=== PATIENT | female | born 1965 | race African-American/Black ===

== ENCOUNTER → 2017-02-22 | Outpatient (CLI) | payer OTHER | END | disposition home or self-care (01) | LOC: CDC 09:30 | DX: Z01.810 Encounter for preprocedural cardiovascular examination (principal); R94.31 Abnormal electrocardiogram [ECG] [EKG] | CPT/HCPCS: 93000 ==

== ENCOUNTER 2017-03-20 11:07 | Day surgery (SDC) | payer OTHER ==
[~2017-03-20] VITALS: Ht 175.3 cm; Wt 130.2 kg
[~2017-03-20 11:07] MED LIST: DAILY MULTIPLE1 EACH PO; FEOSOL325 MG PO; FLEXERIL10 MG PO; FLONASE16 G1 BOTH NARES; MAGNESIUM CITR100 MG PO; MOTRIN800 MG PO; NORVASC10 MG PO; TYLENOL WITH C1 EACH PO; VITAMIN D31000 UNIT PO
[2017-03-20 12:07] VITALS: BP 170/83
[2017-03-20] MEDS ORDERED: IBUPROFEN800 MG PO (14:22)
[2017-03-20 15:15] VITALS: BP 169/79
[2017-03-20 15:59] VITALS: BP 141/84
== END 2017-03-20 16:11 | disposition home or self-care (01) ==
LOC: SDC 11:07
DX: N84.0 Polyp of corpus uteri (principal); N94.6 Dysmenorrhea, unspecified; I10 Essential (primary) hypertension; E66.9 Obesity, unspecified; Z68.41 Body mass index [BMI] 40.0-44.9, adult
CPT/HCPCS: 88305; J0690; J1100; J2250; J2405; J3010

== ENCOUNTER → 2017-09-17 | Outpatient (CLI) | payer OTHER ==
[~2017-09-17] MED LIST changes: +IBUPROFEN800 MG PO
== END | disposition home or self-care (01) ==
LOC: CDC 14:00
DX: Z01.810 Encounter for preprocedural cardiovascular examination (principal); R94.31 Abnormal electrocardiogram [ECG] [EKG]
CPT/HCPCS: 93000

== ENCOUNTER 2017-10-02 08:28 | Day surgery (SDC) | payer OTHER ==
[~2017-10-02] VITALS: Ht 175.3 cm; Wt 130.6 kg
[~2017-10-02 08:28] MED LIST changes: +CYANOCOBALAM1000 MCG PO; +MAGNESIUM250 MG PO; +PROBIOTIC ACID1 EAC3 PO; +VITAMIN A8000 UNIT PO; +VITAMIN E400 UNIT PO
[2017-10-02 09:28] VITALS: BP 132/79
[2017-10-02 13:28] VITALS: BP 137/76
[2017-10-02 14:07] VITALS: BP 133/72
== END 2017-10-02 14:20 | disposition home or self-care (01) ==
LOC: SDC 08:28
PROC: 0UBC7ZX Excision of Cervix, Via Natural or Artificial Opening, Diagnostic (ICD-10-PCS; principal; 2017-10-02)
DX: D06.9 Carcinoma in situ of cervix, unspecified (principal); I10 Essential (primary) hypertension; M81.6 Localized osteoporosis [Lequesne]; E66.9 Obesity, unspecified; Z68.41 Body mass index [BMI] 40.0-44.9, adult; Z82.49 Family history of ischemic heart disease and other diseases of the circulatory system; Z83.3 Family history of diabetes mellitus; Z82.5 Family history of asthma and other chronic lower respiratory diseases; Z80.7 Family history of other malignant neoplasms of lymphoid, hematopoietic and related tissues; Z88.8 Allergy status to other drugs, medicaments and biological substances
CPT/HCPCS: 88305; 88307; 88342 TC; J0330; J1100; J1885; J2250; J2405; J3010